=== PATIENT | female | born 1985 | race Caucasian/White ===

== ENCOUNTER 2022-06-18 07:29 | Inpatient (IN) | payer BC ==
[~2022-06-18 07:29] MED LIST: Bupivacaine/Epinephrine 0.25% 30 ML VIAL ONE
[2022-06-18 08:29] VITALS: BMI 25.7
[2022-06-18] MEDS ORDERED: Carboprost 250 MCG/ML AMP IM PRN (08:55)
[2022-06-18] MEDS ORDERED: Diphenoxylate HCl/Atropine Tablet PO PRN (08:55)
[2022-06-18] MEDS ORDERED: Misoprostol 200 MCG TAB PR PRN (08:55)
[2022-06-18] MEDS ORDERED: hydrALAZINE 20 MG/ML VIAL SLOW IVP PRN (08:55)
[2022-06-18] MEDS ORDERED: Lidocaine 1% (PF) 30 ML VIAL SC PRN (08:55)
[2022-06-18] MEDS ORDERED: Butorphanol Tartrate 1 MG/ML VIAL SLOW IVP PRN (08:55)
[2022-06-18] MEDS ORDERED: Methylergonovine 0.2 MG/ML VIAL IM PRN (08:55)
[2022-06-18] MEDS ORDERED: Ondansetron PF 4 MG/2 ML Vial IVP PRN ×2 (08:55→11:24)
[2022-06-18] MEDS ORDERED: Promethazine HCl 25 MG/ML VIAL IM PRN ×2 (08:55→11:24)
[2022-06-18] MEDS ORDERED: Penicillin G Potassium 5 MILL.UNITS in Sodium Chloride 0.9% 100 ML IVPB SCH (09:00)
[2022-06-18] MEDS ORDERED: Lactated Ringer's 1,000 ML IV SCH (09:00)
[2022-06-18] MEDS ORDERED: NS w/ Oxytocin 30 units 500 ML IV SCH ×2 (09:00)
[2022-06-18 10:09] LABS: SARS-CoV-2 NAA Rapid Test Not Detected (NotDetected)
[2022-06-18 10:46] LABS: Mean Corpuscular HGB CONC 33.5 g/dL (32.0-36.0); Mean Corpuscular Hemoglobin 30.3 pg (27.0-33.0); Mean Corpuscular Volume 90.4 fl (81.6-98.3); Mean Platelet Volume 9.9 fl (7.4-10.4); Platelet Count 231 10x3/uL (150-450); RBC Distribution Width 13.2 % (11.5-14.5); Red Blood Cell (RBC) Count 3.96 10x6/uL (3.90-5.03); White Blood Cell (WBC) Count 11.2 10x3/uL (3.5-10.5)
[2022-06-18] MEDS ORDERED: Fentanyl 2 mcg/Bup 0.1% Cadd 100 ML ONE (10:56)
[2022-06-18 11:21] LABS: Hep B Surf Ag Non-Reactive S/CO (NonReactive); Syphilis Antibody Nonreactive (Nonreactive); Syphilis Antibody Index 0.02 S/CO (<1.00 Non-Reactive)
[2022-06-18] MEDS ORDERED: Lactated Ringer's 500 ML IV PRN (11:24)
[2022-06-18] MEDS ORDERED: Naloxone HCl 0.4 mg/ml Vial IVP PRN ×2 (11:24)
[2022-06-18] MEDS ORDERED: ePHEDrine Sulfate 50 MG/10 ML VIAL SLOW IVP PRN (11:24)
[2022-06-18] MEDS ORDERED: Acetaminophen 325 MG TAB PO PRN (11:24)
[2022-06-18] MEDS ORDERED: Moisturizing Cream (Eucerin) 113 GM JAR TOP PRN (11:24)
[2022-06-18] MEDS ORDERED: diphenhydrAMINE 50 MG/ML VIAL IVP PRN (11:24)
[2022-06-18] MEDS ORDERED: Communication Order-Pharmacy FS SCH (11:30)
[2022-06-18] MEDS ORDERED: Fentanyl 2 mcg/Bupivacaine 0.1% Cassette 100 ML EPIDURAL SCH (11:30)
[2022-06-18 11:43] LABS: HBSAg Index 0.33 S/CO (0-0.99)
[2022-06-18] MEDS: Penicillin G 2.5 MILL.units 2.5 MILL.UNITS in Premix Bag 1 BAG IVPB SCH (17:40)
[2022-06-18] MEDS ORDERED: Ibuprofen 800 MG TAB PO SCH (21:00)
[2022-06-19] MEDS ORDERED: Preparation H Ointment 28 GM TUBE PR PRN (00:37)
[2022-06-19] MEDS ORDERED: Milk Of Magnesia 30 ML UDCUP PO PRN (00:37)
[2022-06-19] MEDS ORDERED: Bisacodyl 10 MG SUPP PR PRN (00:37)
[2022-06-19] MEDS ORDERED: diphenhydrAMINE 25 MG CAP PO PRN (00:37)
[2022-06-19] MEDS ORDERED: hydrALAZINE 20 MG/ML VIAL SLOW IVP PRN (00:37)
[2022-06-19] MEDS ORDERED: Boostrix 0.5 ML (Tdap) VIAL IM ONE (00:37)
[2022-06-19] MEDS ORDERED: NS w/ Oxytocin 30 units 500 ML IV SCH (00:37)
[2022-06-19] MEDS ORDERED: Lanolin Ointment 7 GM TUBE TOP PRN (00:37)
[2022-06-19] MEDS ORDERED: Ondansetron PF 4 MG/2 ML Vial IVP PRN (00:37)
[2022-06-19] MEDS ORDERED: Benzocaine-Menthol 82.5 ML CAN TOP PRN (00:37)
[2022-06-19] MEDS: Docusate 100 MG CAP PO SCH ×3 (00:50→21:17)
[2022-06-19] MEDS: Ibuprofen 800 MG TAB PO SCH ×4 (00:51→21:17)
[2022-06-19] MEDS: Penicillin G 2.5 MILL.units 2.5 MILL.UNITS in Premix Bag 1 BAG IVPB SCH (00:52)
[2022-06-19] MEDS: Ferrous Sulfate 325 MG TAB PO SCH ×2 (08:31→17:08)
[2022-06-19] MEDS: Prenatal Vitamin 1 TAB PO SCH (08:32)
[2022-06-20] MEDS: Ibuprofen 800 MG TAB PO SCH ×2 (05:12→14:15)
[2022-06-20 08:00] VITALS: BP 112/73; TEMP 98.4
[2022-06-20] MEDS: Ferrous Sulfate 325 MG TAB PO SCH ×2 (08:51→18:42)
[2022-06-20] MEDS: Prenatal Vitamin 1 TAB PO SCH (09:56)
[2022-06-20] MEDS: Docusate 100 MG CAP PO SCH (10:01)
== END 2022-06-20 20:35 | disposition home or self-care (01) | DRG 807 ==
LOC: CSHLD/OP 07:29 → CSHLD 10:48 → CSHPP 06-19 00:10
PROVIDERS: ADMIT Obstetrics & Gynecology; ATTEND Obstetrics & Gynecology
PROC: 10D07Z6 Extraction of Products of Conception, Vacuum, Via Natural or Artificial Opening (ICD-10-PCS; principal; 2022-06-18)
PROC: 0KQM0ZZ Repair Perineum Muscle, Open Approach (ICD-10-PCS; 2022-06-18)
DX: O42.02 Full-term premature rupture of membranes, onset of labor within 24 hours of rupture (principal); Z37.0 Single live birth; Z3A.38 38 weeks gestation of pregnancy; Z20.822 Contact with and (suspected) exposure to COVID-19; Z79.899 Other long term (current) drug therapy; O75.81 Maternal exhaustion complicating labor and delivery; O70.1 Second degree perineal laceration during delivery; O69.81X0 Labor and delivery complicated by cord around neck, without compression, not applicable or unspecified
CPT/HCPCS: 36415; 85027; 86780; 86850; 86900; 86901; 87340; J2590; U0002